=== PATIENT | female | born 1980 | race Caucasian/White ===

== ENCOUNTER 2022-04-21 08:27 | Emergency (ER) | payer BC, SELFPAY ==
[2022-04-21 08:30] VITALS: BP 151/75; PULSE 68; RESP 18; TEMP 37.1; O2SAT 98
--- NOTE | 2022-04-21 09:01 | ED.URI ---
HPI - URI/Sore Throat General Chief Complaint: Upper Respiratory Infection Stated Complaint: Cough Time Seen by Provider: 04/21/22 09:01 Source: patient, RN notes reviewed and old records reviewed Mode of arrival: ambulatory Limitations: no limitations History of Present Illness HPI Narrative: 41-year-old male who presents to [facility] with complaints of cough for 1 week duration which is productive of yellowish phlegm, head congestion and drainage which is kind of brownish tinged. Patient reports he has been treated 2 weeks ago for possible sinus infection with doxycycline he did get better and then proceeded to start with increased cough nasal drainage which is brownish in color. Patient denies any fevers body aches did do a home COVID test which was negative he has not been vaccinated for COVID or flu MD elicited complaint: cough, rhinorrhea and nasal congestion Pertinent past history: sinusitis Onset (ago): week(s) (1) Treatments prior to arrival: other (Tylenol severe cold and flu) Related Data Allergies Allergy/AdvReac Type Severity Reaction Status Date / Time Penicillins Allergy Unknown Verified 04/21/22 08:47 Review of Systems Review of Systems: CONSTITUTIONAL: Denies malaise, chills, sweats, or fever. EYES: Denies visual changes, redness, or discharge. ENT: Reports rhinorrhea, congestion, sinus pain,no otalgia and sore throat. CARDIOVASCULAR: Denies chest pain, palpitations, or edema. RESPIRATORY: Reports cough.? Denies dyspnea. GASTROINTESTINAL: Denies abdominal pain, nausea, vomiting, diarrhea SKIN: Denies rash or itching. MUSCULOSKELETAL: Denies myalgia. NEUROLOGIC: Denies headache. All systems reviewed & are unremarkable except as noted in HPI and below PMFSH Social History Social History Smoking packs per day: 1 Smoking cigarettes per day: 20.0 Years smoked: 10 Smoking pack-years: 10.00 Smoking status: Current every day smoker Tobacco type: e-cigarettes/vaping Additional smoking assessment comments: former cigarette use for 10 years has vaped for the past 2 Alcohol use details: no alcohol use Substance use type: does not use Living arrangements: with family Gender identity (if verbalized by the patient): Male Comments At time of signature, agree with nursing past medical, surgical, social and family history. There is no relevant family history pertinent to the presenting complaint Exam Narrative: GENERAL: Well-appearing, well-nourished, and in no acute distress. HEAD: Normocephalic EYES: PERRLA, conjunctivae clear ENT: Nares clear, turbinates edematous and erythematous, clear and brownish tinged discharge. Mucous membranes moist. TM pearly logan with dull light reflex bilaterally; no tragal tenderness. Oropharynx erythematous without lesions. Tonsils red enlarged and without exudate, no drooling, no hoarseness, no trismus, uvula midline.post nasal drainage NECK: Supple. No lymphadenopathy CHEST: Clear to auscultation, breath sounds equal. No wheezing, rhonchi, rales, or stridor. No respiratory distress, speaks in full sentences.harsh dry and productive cough SAO2 98% on room air HEART: Regular rate and rhythm. No murmur heard. SKIN: Warm, dry, no rash. NEURO: Alert and oriented x3. PSYCH: Normal mood and affect Course Course Emergency Course: Patient is aware of diagnosis, understands and agrees to treatment plan.? Anticipatory guidance given.? Patient agrees to follow-up as directed and is aware of reasons to seek care at the emergency department. Portions of this record may have been created with voice recognition software Level of Care: Express Care Visit Vital Signs Vital signs: Vital Signs Temperature 37.1 C 04/21/22 08:30 Pulse Rate 68 04/21/22 08:30 Respiratory Rate 18 04/21/22 08:30 Blood Pressure 151/75 H 04/21/22 08:30 Pulse Oximetry 98 04/21/22 08:30 Tempera
== END 2022-04-21 09:20 | disposition home or self-care (01) ==
PROVIDERS: Emergency Provider Registered Nurse
DX: J06.9 Acute upper respiratory infection, unspecified (principal); F17.290 Nicotine dependence, other tobacco product, uncomplicated
CPT/HCPCS: 99213; G0463

== ENCOUNTER 2022-10-21 07:34 | Emergency (ER) | payer BC, SELFPAY ==
[2022-10-21 07:43] VITALS: BP 178/107; PULSE 69; RESP 18; O2SAT 97
--- NOTE | 2022-10-21 07:51 | ED.LOWEXIN ---
HPI - Extremity Injury (Lower) General Chief Complaint: Extremity Injury, Lower Stated Complaint: leg injury Time Seen by Provider: 10/21/22 07:47 History of Present Illness HPI Narrative: Patient is a healthy 41-year-old male who presents ER with left calf pain. Reports she was at [employer] [place] into the warped wall when he felt a pop and pain in his left calf. He has pain with plantarflexion. No numbness or tingling. No pain to the ankle or knee. He did not fall. No additional concerns. Related Data Allergies Allergy/AdvReac Type Severity Reaction Status Date / Time Penicillins Allergy Unknown Verified 04/21/22 08:47 Review of Systems Musculoskeletal: Musculoskeletal: Denies arthralgias, Denies joint swelling and Reports muscle cramps Neurologic: Denies focal weakness and Denies numbness PMFSH Past Medical History Medical History (Updated 10/21/22 @ 07:57 by Ronan Vásquez MD) No significant past medical history Social History Social History Smoking packs per day: 1 Smoking cigarettes per day: 20.0 Years smoked: 10 Smoking pack-years: 10.00 Smoking status: Current every day smoker Tobacco type: e-cigarettes/vaping Additional smoking assessment comments: former cigarette use for 10 years has vaped for the past 2 Alcohol use details: no alcohol use Substance use type: does not use Living arrangements: with family Gender identity (if verbalized by the patient): Male Exam Narrative: GENERAL: Well-appearing, well-nourished, and in no acute distress. HEAD: Normocephalic, atraumatic. EXTREMITIES: Focused exam right lower extremity reveals some mild tenderness in the middle of the upper third of the calf. No tenderness over the Achilles tendon or the insertion point at the heel. No swelling or bruising or mass. Plantarflexion dorsiflexion intact. Normal strength. Right lower extremity sensation intact. SKIN: Warm, dry, no rash. NEURO: Alert and oriented x3. PSYCH: Normal mood and affect. Course Course Emergency Course: Patient given reassurance. Recommend anti-inflammatories for discomfort. We will give a day off work. Also discussed patient's elevated blood pressure reading while in the ER. Recommend patient establish care with PCP and also monitor his blood pressure as he may require medication. Patient verbalized understanding of this. Vital Signs Vital signs: Vital Signs Pulse Rate 69 10/21/22 07:43 Respiratory Rate 18 10/21/22 07:43 Blood Pressure 178/107 H 10/21/22 07:43 Pulse Oximetry 97 10/21/22 07:43 Oxygen Delivery Room Air 10/21/22 07:43 Pulse Rate 69 10/21/22 07:43 Respiratory Rate 18 10/21/22 07:43 Blood Pressure 178/107 H 10/21/22 07:43 Pulse Oximetry 97 10/21/22 07:43 Oxygen Delivery Room Air 10/21/22 07:43 Discharge Plan Discharge Clinical Impression: Strain of calf muscle Patient Disposition: Home, Self-Care Condition: Stable Instructions: Muscle Strain (ED) Additional Instructions: Return the ER if you suffer new injury, you have a red/swollen leg, you have chest pain or shortness of breath, you have additional concerns. Take anti-inflammatory medication for your discomfort. Prescriptions: New naproxen 500 mg tablet 500 mg PO BID Qty: 14 0RF No Action azithromycin 250 mg tablet See Rx Instructions .ROUTE .COMPLEX Qty: 6 0RF Rx Instructions: For 250 mg dose pack: take 500 mg today (day 1), then 250 mg for 4 days (days 2-5) prednisone 20 mg tablet 20 mg PO BID Qty: 10 0RF Follow-up/Referrals: PHYSICIAN,MANAGER GROCERY [Primary Care Provider] - Jurgen Perez MD [Physician] - 1 Week Stand Alone Forms: Work/School Release IP
--- NOTE | 2022-11-01 11:17 | PC.NURSE ---
LATE ENTRY This note is being entered to document information to the patient's record. The following information was omitted on [10/21/2022], by [Ashley Youssef RN. Pt triage note was recorded as the wrong side. pt left lower extremity wound is the correct side and location of wound.].
== END 2022-10-21 08:15 | disposition home or self-care (01) ==
LOC: ANHED 08:00
PROVIDERS: Emergency Provider Emergency Medicine
DX: S86.912A Strain of unspecified muscle(s) and tendon(s) at lower leg level, left leg, initial encounter (principal); F17.290 Nicotine dependence, other tobacco product, uncomplicated; X50.9XXA Other and unspecified overexertion or strenuous movements or postures, initial encounter
CPT/HCPCS: 99283